=== PATIENT | female | born 1960 | race Caucasian/White ===

== ENCOUNTER → 2023-06-01 09:26 | Outpatient (BNVA) | payer MEDICARE, SELFPAY | PROVIDERS: PCP Family Medicine; Visit Provider Podiatrist Foot & Ankle Surgery | DX: M76.61 Achilles tendinitis, right leg; M77.51 Other enthesopathy of right foot and ankle; M24.571 Contracture, right ankle | CPT/HCPCS: 73610; 99203 ==

== ENCOUNTER 2023-06-28 11:42 | Outpatient (CLI) | payer MEDICARE, SELFPAY | END 2023-06-28 11:43 | disposition home or self-care (01) | LOC: SPT 11:44 | PROVIDERS: PCP Family Medicine; Visit Provider Podiatrist Foot & Ankle Surgery | DX: Z46.89 Encounter for fitting and adjustment of other specified devices (principal); M76.61 Achilles tendinitis, right leg; M77.51 Other enthesopathy of right foot and ankle; M24.571 Contracture, right ankle | CPT/HCPCS: 97760; 99213; L4397 ==

== ENCOUNTER 2023-07-04 11:36 | Outpatient (RCR) | payer MEDICARE, OTHER, SELFPAY | END 2023-07-19 23:59 | disposition home or self-care (01) | LOC: SPT 11:36 | PROVIDERS: Visit Provider Podiatrist Foot & Ankle Surgery | DX: M76.61 Achilles tendinitis, right leg (principal) | CPT/HCPCS: 97033; 97110; 97140; 97161 ==

== ENCOUNTER 2023-07-20 06:00 | Outpatient (RCR) | payer MEDICARE, OTHER, SELFPAY | END 2023-07-21 23:59 | disposition home or self-care (01) | LOC: SPT 06:00 | PROVIDERS: Visit Provider Podiatrist Foot & Ankle Surgery | DX: M76.61 Achilles tendinitis, right leg (principal) | CPT/HCPCS: 97033; 97110; 97140 ==

== ENCOUNTER → 2023-07-28 09:39 | Outpatient (BNVA) | payer MEDICARE, OTHER, SELFPAY | PROVIDERS: Visit Provider Podiatrist Foot & Ankle Surgery | DX: M76.61 Achilles tendinitis, right leg (principal); M77.51 Other enthesopathy of right foot and ankle; M24.571 Contracture, right ankle | CPT/HCPCS: 99213 ==

== ENCOUNTER 2023-08-09 06:43 | Outpatient (CLI) | payer MEDICARE, OTHER, SELFPAY ==
--- NOTE | 2023-08-09 07:15 | MR_ITS ---
WS: [id number] EXAMINATION: MR ankle RT wo con* [id number] ORDER DATE: 08/09/2023 7:12 AM COMPARISON: None. HISTORY: pain unresolved with conservative treatments CONTRAST: None. TECHNIQUE: Axial proton density fat sat, axial T1, sagittal proton density, sagittal STIR, coronal T2 fat sat, and coronal T1 sequences performed. After contrast, axial T1 fat sat, coronal T1 fat sat, and sagittal T1 fat sat were performed. FINDINGS: Plantar calcaneal spurring. Normal ankle mortise. Normal medial and lateral malleolus. Normal talar d ome. Small interstitial tear in the mid to distal Achilles. Small amount of paratenonitis. Small amou nt of fluid in the retrocalcaneal bursa. Small amount of tenosynovitis along peroneal tendon sheath. Chronic split tear involving the peroneal brevis. Tenosynovitis involving the flexor compartment tendons. Tenosynovitis anterior tibialis. Sma ll joint effusion. Normal talar dome navicular articulation. Normal plantar aponeurosis. Tiny ATF dif ficult to visualize but probably intact. This may be due to prior chronic tear. MR/MR ankle RT wo con* [id number] IMPRESSION: 1. Achilles tendinopathy with mucoid degeneration and small interstitial tear in the mid to distal tendon. Associated paratenonitis. 2. Retrocalcaneal bursitis. 3. Tenosynovitis involving the peroneal Tendon sheath and extensor compartment tendons. Tenosynovitis anterior tibialis. 4. Small ankle effusion. 5. Prominent plantar calcaneal spur. 6. Tiny ATF is difficult to visualize but probably intact.
== END 2023-08-09 06:44 | disposition home or self-care (01) ==
LOC: RAD 06:43
PROVIDERS: Visit Provider Podiatrist Foot & Ankle Surgery
DX: M76.61 Achilles tendinitis, right leg (principal); M65.871 Other synovitis and tenosynovitis, right ankle and foot; M77.30 Calcaneal spur, unspecified foot; S96.911A Strain of unspecified muscle and tendon at ankle and foot level, right foot, initial encounter
CPT/HCPCS: 73721

== ENCOUNTER → 2023-08-25 15:19 | Outpatient (BNVA) | payer MEDICARE, OTHER, SELFPAY | PROVIDERS: Visit Provider Podiatrist Foot & Ankle Surgery | DX: M76.61 Achilles tendinitis, right leg (principal); M77.51 Other enthesopathy of right foot and ankle; M24.571 Contracture, right ankle | CPT/HCPCS: 99214 ==

== ENCOUNTER → 2023-09-01 14:39 | Outpatient (BNVA) | payer MEDICARE, OTHER, SELFPAY | PROVIDERS: Visit Provider Nurse Practitioner Family | DX: C44.311 Basal cell carcinoma of skin of nose (principal); L57.0 Actinic keratosis; L57.8 Other skin changes due to chronic exposure to nonionizing radiation; L81.4 Other melanin hyperpigmentation; D22.5 Melanocytic nevi of trunk; L81.3 Cafe au lait spots | CPT/HCPCS: 11102; 17000; 99203 ==

== ENCOUNTER 2023-09-07 07:07 | Day surgery (SDC) | payer MEDICARE, OTHER, SELFPAY ==
[2023-09-07] VITALS (10 sets, daily range): BP systolic 116–148; BP diastolic 58–84; PULSE 67–91; RESP 12–20; TEMP 36.1–36.6; O2SAT 94–99; BMI 32.8
[2023-09-07] MEDS: albuterol 2.5 mg/3 mL Neb INHALATION (07:43)
[2023-09-07] MEDS: acetaminophen 1,000 MG/100 ML PIGGYBACK 400 MG IV (07:43)
[2023-09-07] MEDS: gabapentin 300 mg Capsule PO (07:44)
[2023-09-07 07:48] LABS: Glucose Point of Care 159 mg/dL (70-110)
--- NOTE | 2023-09-07 08:02 | ANES.PREANE2 ---
Pre-Anesthetic Assessment Height/Weight: Height 1.7 m Weight 95.254 kg Temp Pulse Resp BP Pulse Ox O2 Del Method 97.9 F 80 18 148/84 99 Room Air 09/07/23 07:28 09/07/23 07:28 09/07/23 07:28 09/07/23 07:28 09/07/23 07:28 09/07/23 07:37 Preop Diagnosis: Right calcaneal spur and achilles tendinitis Operation Date: 09/07/23 08:50 Proposed Procedures p Exostectomy(Right) - Mark Webb DPM s Achilles Tendon Repair(Right) - Mark Webb DPM Familial anesthetic complications: None Was Beta Christiana taken within 24 hours: N/A Was Clonidine taken within 24 hours: N/A Last intake: Intake Last Liquid Date 09/06/23 Last Liquid Time 20:00 Last Solid Date 09/06/23 Last Solid Time 20:00 Social No alcohol and No tobacco Exam alert, oriented x 3, clear to auscultation bilaterally and regular rate & rhythm Airway Mallampati: Class III Dentition: false CV/HEM Hypertension Metabolic Diabetes Mellitus, Hyperlipidemia and Morbid Obesity Anesthetic Plan ASA status: 2 Anesthesia: General and Regional (specify below) Risk of > 500 ml blood loss (7ml/kg in children): No Medications/Allergies Home Medications Medication Instructions Recorded Confirmed Last Taken Type losartan 50 mg tablet 50 mg PO DAILY 06/01/23 09/06/23 09/06/23 History metformin 500 mg tablet 500 mg PO BID 06/01/23 09/06/23 09/06/23 History omeprazole 20 mg capsule,delayed 20 mg PO DAILY 06/01/23 09/06/23 09/06/23 History release pravastatin 20 mg tablet 20 mg PO DAILY 06/01/23 09/06/23 09/06/23 History sitagliptin phosphate 50 mg tablet 50 mg PO DAILY 06/01/23 09/06/23 08/31/23 History (Johanna) night splint #1 ea 06/28/23 08/25/23 Unknown Rx knee scooter #1 ea 08/25/23 08/25/23 Unknown Rx Allergies Allergy/AdvReac Type Severity Reaction Status Date / Time alcohol Allergy hives Verified 08/25/23 15:24 NSAIDS (Non-Steroidal Allergy one kidney Verified 08/25/23 15:24 Anti-Inflamma Data Anesthesia Cardiac Studies: No Data to Display
--- NOTE | 2023-09-07 08:02 | ANES.PROC ---
Anesthesia Procedures Procedure/Date: 09/07/23 Nerve Block ^: Nerve Block 1: Main Anesthesia: general anesthesia Time Out Performed: Yes Consent: requested by attending/covering physician, from patient, from other, risks and benefits reviewed and patient agrees to proceed Nerve block location: popliteal (R) Anesthesia monitors applied: pulse oximetry, EKG, BP cuff and oxygen Nerve block position: supine Anesthetic Used: ropivicaine 0.5% (30 ml) and with decadron (4 mg) Ultrasound used to: recognize landmarks Nerve Stimulator Used?: No Interscalene/Femoral BLK: 4 stimuplex 21 g needle used for position and inplane approach, visualize local anesthetic spread and no vascular puncture identified Injection: neg aspiration of heme Patient Tolerated Procedure: well Complications: none
--- NOTE | 2023-09-07 08:51 | P.HPUD_ITS ---
Surgery/Procedure H&P Update DATE OF PROCEDURE: September 07, 2023 DATE H&P PERFORMED: 08/25/23 H&P UPDATE INFORMATION: I have reviewed H&P completed within last 30 days, I have examined patient prior to procedure, No changes to prior documentation and H&P is in [facility] EMR on date indicated PREOP DIAGNOSIS: Right calcaneal spur and achilles tendinitis PLANNED PROCEDURE: Operation Date: 09/07/23 08:50 Proposed Procedures p Exostectomy(Right) - Mark Webb DPM s Achilles Tendon Repair(Right) - Mark Webb DPM
[2023-09-07] MEDS: ceFAZolin 2,000 MG in sodium chloride 0.9% (plus) 50 ML 100 MG IV (09:15)
--- NOTE | 2023-09-07 10:45 | P.BOP_ITS ---
Date of procedure: 09/07/2023 Surgeon name: Nish YangPLesli Applications Manager(s) name(s): Michael Fernandez Procedure(s) performed: Secondary repair right Achilles tendon, retrocalcaneal exostectomy Description of findings: Retrocalcaneal exostosis, Achilles tendon tear Estimated blood loss: 5 cc Tourniquet time: 54 minutes Specimen(s) removed: None Post-operative diagnosis: Right Achilles exostosis, Achilles tendon tear, tendinosis
[2023-09-07] MEDS: sodium chloride 0.9% 1,000 ML 30 ML IV (11:45)
--- NOTE | 2023-09-07 12:10 | ANE.PACU2 ---
Inpatient post-anesthesia follow up: Airway intact: Yes Vital signs: Temperature 97.8 F Pulse Rate 67 Respiratory Rate 16 Blood Pressure 137/66 Pulse Oximetry 96 Oxygen Delivery Me thod Room Air Oxygen Flow Rate Fraction of Inspir ed Oxygen Hydration adequate: Yes Nausea and vomiting: No Pain level: 1 Mental status: Baseline
--- NOTE | 2023-09-07 12:53 | P.OP_ITS ---
Operative Report Date of procedure: September 07, 2023 Pre-op diagnosis: Right achilles tendinosis M65.271, Right calcaneal exostosis M77.31 Post-op diagnosis: Same Post-op findings: Right achilles tendinosis, retrocalcaneal spurring Procedure done: 1. Right calcaneal exostectomy CPT 77586, 2. Secondary repair right achilles CPT 75815 Implants: Achilles speed bridge [employer] medical Surgeon: Mark Webb DPM Strategic Marketing Specialist: Michael Fernandez Estimated blood loss: 5 cc 54 minutes Complications: None Findings: See above Procedure: Patient is a 63-year-old female that has a history of right Achilles tendinosis. The patient has had the aforementioned chief complaint for some time. Conservative treatment measures have been attempted and the patient has opted for surgical intervention at this time. A lengthy discussion regarding the procedure, including risks and complications has been had with the patient and is noted in the recent clinic note. Written and verbal consent have been obtained. All patient questions have been answered to the patient?s satisfaction. No written or verbal guarantees have been given or implied. The patient has been NPO since midnight. The history has been reviewed and the history and physical is current. The signed consent was confirmed and placed in the patient chart. Patient imaging has been reviewed and is consistent with the diagnosis. Under mild sedation, the patient was brought into the operating room and placed on the table in the prone position. IV antibiotics were given by the anesthesia team as preoperative surgical prophylaxis. General sedation was then performed by the anesthesiateam. The popliteal block was performed and anesthesia department. A pneumatic tourniquet was then placed about the right thigh. The operative extremity was then prepped and draped in the usual fashion. The extremity was then elevated and exsanguinated before the tourniquet was inflated to 325 mmHg. After inflation, the following procedure was then performed. The patient was brought to the operating room, placed in the prone position, and administered appropriate anesthesia. A sterile surgical field was established, and a pneumatic tourniquet was applied to the proximal thigh. An approximately 6 cm longitudinal incision was made over the posterior aspect of the right heel, centered over the Enrique's deformity. The incision was deepened through the skin and subcutaneous tissue, and the underlying Achilles tendon was identified and protected. Using a combination of sharp dissection and electrocautery, the soft tissues were carefully dissected to expose the prominent bony prominence associated with the Enrique's deformity. A sagittal saw and rongeurs were utilized to perform a resection of the bony prominence, taking care to protect the underlying soft tissues. Following the Enrique's resection, attention was turned to the Achilles tendon. Any adhesions, scar tissue, or degenerative tissue present within the tendon were meticulously debrided using a combination of sharp dissection and a shaver. Care was taken to preserve healthy tendon tissue and maintain the integrity of the tendon. After the debridement, the [employer] Speed Bridge system was employed for the repair of the Achilles tendon. The appropriate drill holes were made in the calcaneus and the distal end of the tendon. Sutures were then passed through the drill holes, and the tendon was repaired using the Speed Bridge construct, achieving stable fixation. The Achilles tendon was then repaired using 2-0 Vicryl in a running fashion. The wound was thoroughly irrigated with saline solution to remove any debris or bone fragments. Hemostasis was achieved, and the wound was closed in layers. The subcutaneous tissue was approximated with absorbable sutures, and the skin was closed with a combination of absorbable sutures and skin lesley. A sterile dressing was applied over the surgical site. The patient tolerated the procedure well, and there were no intraoperative complications. The patient tolerated the procedure and anesthesia well and without complication. The patient was transported from the operating room to the recovery room with vital signs stable and vascular status intact to all digits of the right foot. The patient was given both written and verbal instructions to remain nonweightbearing to the operative extremity, to keep dressings/splint clean, dry and intact and to take pain medication as directed. The patient will follow-up in the outpatient setting at their scheduled appointment. The patient was discharged with my personal number and was instructed to call if any questions or issues should arise. They were discharged home once anesthesia criteria was met.
== END 2023-09-07 12:12 | disposition home or self-care (01) ==
PROVIDERS: PCP Family Medicine; Visit Provider Podiatrist Foot & Ankle Surgery
PROC: (CPT 28288; principal; 2023-09-07 08:40)
PROC: (CPT 27650; 2023-09-07 08:40)
DX: M65.271 Calcific tendinitis, right ankle and foot (principal); I10 Essential (primary) hypertension; E11.9 Type 2 diabetes mellitus without complications; E78.5 Hyperlipidemia, unspecified; E66.01 Morbid (severe) obesity due to excess calories; Z68.32 Body mass index [BMI] 32.0-32.9, adult; Z79.84 Long term (current) use of oral hypoglycemic drugs
CPT/HCPCS: 27654; 28120; 36416; 76000; 82962; C1713; J0131; J0690; J1100; J2250; J2704; J2795; J3010; J3490; J7030; J7613

== ENCOUNTER → 2023-09-15 08:15 | Outpatient (BNVA) | payer MEDICARE, OTHER, SELFPAY | PROVIDERS: PCP Family Medicine; Visit Provider Podiatrist Foot & Ankle Surgery | DX: M76.61 Achilles tendinitis, right leg (principal); M77.51 Other enthesopathy of right foot and ankle; M24.571 Contracture, right ankle | CPT/HCPCS: 99024; A4590 ==

== ENCOUNTER → 2023-09-20 15:05 | Outpatient (BNVA) | payer MEDICARE, OTHER, SELFPAY | PROVIDERS: PCP Family Medicine; Visit Provider Podiatrist Foot & Ankle Surgery | DX: M76.61 Achilles tendinitis, right leg (principal); M77.51 Other enthesopathy of right foot and ankle; M24.571 Contracture, right ankle | CPT/HCPCS: 99024 ==

== ENCOUNTER → 2023-10-05 14:35 | Outpatient (BNVA) | payer MEDICARE, OTHER, SELFPAY | PROVIDERS: PCP Family Medicine; Visit Provider Podiatrist Foot & Ankle Surgery | DX: Z98.890 Other specified postprocedural states (principal) | CPT/HCPCS: 99024 ==

== ENCOUNTER 2023-10-13 13:19 | Outpatient (RCR) | payer MEDICARE, OTHER, SELFPAY | END 2023-10-19 23:59 | disposition home or self-care (01) | LOC: SPT 13:19 | PROVIDERS: PCP Family Medicine; Visit Provider Podiatrist Foot & Ankle Surgery | DX: Z98.890 Other specified postprocedural states (principal) | CPT/HCPCS: 97161 ==

== ENCOUNTER 2023-10-20 06:00 | Outpatient (RCR) | payer MEDICARE, OTHER, SELFPAY | END 2023-11-19 23:59 | disposition home or self-care (01) | LOC: SPT 06:00 | PROVIDERS: PCP Family Medicine; Visit Provider Podiatrist Foot & Ankle Surgery | DX: Z98.890 Other specified postprocedural states (principal) | CPT/HCPCS: 97110; 99024; G0283 ==

== ENCOUNTER → 2023-11-03 09:24 | Outpatient (BNVA) | payer MEDICARE, OTHER, SELFPAY | PROVIDERS: PCP Family Medicine; Visit Provider Podiatrist Foot & Ankle Surgery | DX: Z98.890 Other specified postprocedural states (principal); B35.3 Tinea pedis | CPT/HCPCS: 99024 ==

== ENCOUNTER → 2023-12-01 09:04 | Outpatient (BNVA) | payer MEDICARE, OTHER, SELFPAY | PROVIDERS: PCP Family Medicine; Visit Provider Podiatrist Foot & Ankle Surgery | DX: Z98.890 Other specified postprocedural states (principal); B35.3 Tinea pedis | CPT/HCPCS: 99024 ==

== ENCOUNTER → 2023-12-08 08:05 | Outpatient (BNVA) | payer MEDICARE, OTHER, SELFPAY | PROVIDERS: PCP Family Medicine; Visit Provider Podiatrist Foot & Ankle Surgery | DX: M79.671 Pain in right foot (principal); Z98.890 Other specified postprocedural states; B35.3 Tinea pedis | CPT/HCPCS: 73630; 99213 ==

== ENCOUNTER 2023-12-20 10:04 | Outpatient (RCR) | payer MEDICARE, OTHER, SELFPAY | END 2024-01-19 23:59 | disposition home or self-care (01) | LOC: SPT 10:04 | PROVIDERS: Visit Provider Podiatrist Foot & Ankle Surgery | DX: M76.61 Achilles tendinitis, right leg (principal); M72.2 Plantar fascial fibromatosis | CPT/HCPCS: 97110; 97161 ==

== ENCOUNTER → 2023-12-29 09:40 | Outpatient (BNVA) | payer MEDICARE, OTHER, SELFPAY | PROVIDERS: PCP Family Medicine; Visit Provider Podiatrist Foot & Ankle Surgery | DX: Z98.890 Other specified postprocedural states; B35.3 Tinea pedis | CPT/HCPCS: 99213 ==

== ENCOUNTER 2024-01-20 06:00 | Outpatient (RCR) | payer MEDICARE, OTHER, SELFPAY | END 2024-02-08 23:59 | disposition home or self-care (01) | LOC: SPT 06:00 | PROVIDERS: PCP Family Medicine; Visit Provider Podiatrist Foot & Ankle Surgery | DX: M72.2 Plantar fascial fibromatosis (principal); M76.61 Achilles tendinitis, right leg | CPT/HCPCS: 97110 ==

== ENCOUNTER → 2024-02-07 09:31 | Outpatient (BNVA) | payer MEDICARE, OTHER, SELFPAY | PROVIDERS: PCP Family Medicine; Visit Provider Podiatrist Foot & Ankle Surgery | DX: Z98.890 Other specified postprocedural states; B35.3 Tinea pedis | CPT/HCPCS: 99213 ==

== ENCOUNTER → 2024-09-05 13:26 | Outpatient (BNVA) | payer MEDICARE, OTHER, SELFPAY | PROVIDERS: PCP Family Medicine; Visit Provider Nurse Practitioner Family | DX: L57.8 Other skin changes due to chronic exposure to nonionizing radiation (principal); L81.4 Other melanin hyperpigmentation; D22.5 Melanocytic nevi of trunk; L81.3 Cafe au lait spots; Z08 Encounter for follow-up examination after completed treatment for malignant neoplasm; Z85.828 Personal history of other malignant neoplasm of skin; L82.0 Inflamed seborrheic keratosis; R20.8 Other disturbances of skin sensation; Z78.9 Other specified health status; L53.8 Other specified erythematous conditions; L57.0 Actinic keratosis | CPT/HCPCS: 17000; 17110; 99213 ==

== ENCOUNTER → 2024-10-26 09:16 | Outpatient (BNVA) | payer MEDICARE, OTHER, SELFPAY | PROVIDERS: PCP Family Medicine; Visit Provider Podiatrist Foot & Ankle Surgery | DX: L60.0 Ingrowing nail (principal); Z98.890 Other specified postprocedural states; B35.3 Tinea pedis | CPT/HCPCS: 11750; 99214; A6219; J9999 ==

== ENCOUNTER → 2024-11-08 09:27 | Outpatient (BNVA) | payer MEDICARE, OTHER, SELFPAY | PROVIDERS: PCP Family Medicine; Visit Provider Podiatrist Foot & Ankle Surgery | DX: L60.0 Ingrowing nail (principal); Z98.890 Other specified postprocedural states; B35.3 Tinea pedis | CPT/HCPCS: 99213 ==